=== PATIENT | male | born 1990 | race Caucasian/White ===

== ENCOUNTER 2019-03-15 03:36 | Emergency (ER) | payer OTHER ==
[~2019-03-15] VITALS: Ht 170.2 cm; Wt 70.8 kg
[2019-03-15 03:40] VITALS: BP 142/87
--- NOTE | 2019-03-15 03:40 | NUR ---
PT AMBULATED TO BED #6
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
[2019-03-15 04:00] VITALS: BP 142/87
--- NOTE | 2019-03-15 04:01 | NUR ---
Patient discharged with v/s stable. Written and verbal after care instructions given and explained. Patient alert, oriented and verbalized understanding of instructions. Ambulatory with steady gait. All questions addressed prior to discharge. ID band removed. Patient advised to follow up with PMD. Rx of CLINDAMYCIN AND NORCO given. Patient educated on indication of medication including possible reaction and side effects. Opportunity to ask questions provided and answered.
== END 2019-03-15 04:00 | disposition home or self-care (01) ==
LOC: MED 03:36
DX: L03.116 Cellulitis of left lower limb (principal); Z88.1 Allergy status to other antibiotic agents; Z88.2 Allergy status to sulfonamides
CPT/HCPCS: 99283

== ENCOUNTER 2019-04-16 11:24 | Emergency (ER) | payer OTHER ==
[~2019-04-16] VITALS: Ht 170.2 cm; Wt 70.3 kg
[2019-04-16 11:38] VITALS: BP 133/82
--- NOTE | 2019-04-16 11:46 | NUR ---
PT AMB TO BED 7 WITH STEADY GAIT
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
--- NOTE | 2019-04-16 12:06 | NUR ---
Dr. Leal is evaluating the patient at bedside.
--- NOTE | 2019-04-16 12:16 | NUR ---
PT DENIES CERVICAL TENDERNESS. PT CLEARED BY MD, NO C-COLLAR NEEDED.
--- NOTE | 2019-04-16 12:21 | NUR ---
Patient taken to CT scan via wheelchair by tech.
--- NOTE | 2019-04-16 12:21 | NUR ---
PT TAKEN TO CT VIA WC.
--- NOTE | 2019-04-16 12:22 | NUR ---
PT TO CT VIA WC
[2019-04-16 14:08] VITALS: BP 133/82
--- NOTE | 2019-04-16 14:09 | NUR ---
Patient discharged with v/s stable. Written and verbal after care instructions given and explained. Patient verbalized understanding. Ambulatory with steady gait. All questions addressed prior to discharge. Advised to follow up with PMD.
== END 2019-04-16 14:09 | disposition home or self-care (01) ==
LOC: MED 11:24
DX: S09.90XA Unspecified injury of head, initial encounter (principal); R11.2 Nausea with vomiting, unspecified; R42 Dizziness and giddiness; F41.9 Anxiety disorder, unspecified; Z88.2 Allergy status to sulfonamides; Z88.1 Allergy status to other antibiotic agents; V87.8XXA Person injured in other specified noncollision transport accidents involving motor vehicle (traffic), initial encounter; Y93.89 Activity, other specified; Y92.89 Other specified places as the place of occurrence of the external cause; Y99.8 Other external cause status
CPT/HCPCS: 70450; 99284